=== PATIENT | male | born 1955 | race Caucasian/White ===

== ENCOUNTER 2017-01-12 10:55 | Observation (INO) ==
[2017-01-12] MEDS ORDERED: Ipratropium/Albuterol Neb 3 ML IH ONE (11:38)
--- NOTE | 2017-01-12 12:08 | Emergency Department Note ---
Disposition Clinical Impression: ACS (acute coronary syndrome) Disposition: Admitted As Inpatient Condition: Good Referrals: NONE,PCP [Primary Care Provider] - Forms: ED Satisfaction Letter Time of Disposition: 12:41 General Adult HPI - General Chief complaint: ED Shortness of Breath/Dyspnea Stated complaint: "my left lung hurts" Time Seen by Provider: 01/12/17 11:10 Source: patient Limitations: no limitations Nursing Notes Reviewed: Yes Vital Signs Reviewed: Yes - History of Present Illness HPI Narrative: History of present illness 61-year-old male history of COPD 3 strokes high blood pressure. Was presents to the ER with 1 week of nearly constant chest pain worse with exertion. Increasing exertional tolerance change in dyspnea over the past week. Denies increasing cough, sputum, fever, chills. Denies headache, vomiting, nausea or diaphoresis. Said he had a stress test a year ago but was unsure of the results. Patient heart score is 4. Patient will be worked up for COPD flare and chest pain ACS. Admission anticipated and shared with patient who is in agreement with this. Pain Scale: 10 - Related Data Previous Rx's Medication Instructions Recorded Meloxicam [Mobic] 7.5 mg PO DAILY #15 tablet 11/10/15 Allergies Allergy/AdvReac Type Severity Reaction Status Date / Time No Known Allergies Allergy Unverified 10/01/15 08:48 All systems ED: reviewed and negative except as stated. Cardiovascular: Reports: chest pain, dyspnea on exertion Respiratory: Reports: cough, dyspnea Past Medical History - Past Medical History Attestation: Yes The following information was validated with the patient. Source: patient Medical history: Reports: COPD, CVA, hypertension, other Surgical history: Reports: other (Lumbar back surgery fixation) Psychiatric history: Reports: no psych history - Social History Smoking Status: Current every day smoker Smokeless Tobacco Status: No Alcohol use: Reports: none Drug use: Reports: none Physical Exam - General Limitations: no limitations General appearance: alert, in distress - Head Head exam: atraumatic, normocephalic - Eye Eye exam: Present: normal appearance, PERRL, EOMI - ENT ENT exam: normal exam, normal oropharynx - Neck Neck exam: Present: normal inspection, full ROM - Chest Chest inspection: Present: normal inspection, symmetric chest wall rise - Respiratory Respiratory exam: Present: prolonged expiratory phase, other (Decreased breath sounds bilaterally) - Cardiovascular Cardiovascular exam: Present: regular rate, normal rhythm - Abdominal Exam Abdominal exam: Present: soft, Non-Tender - Extremities Exam Extremities exam: Present: normal inspection, full ROM. Absent: pedal edema - Expanded Lower Extremity Exam Gait: observed and normal - Back Exam Back exam: Present: normal inspection, full ROM - Neurological Exam Neurological exam: Present: alert, oriented X3, CN II-XII intact - Psychiatric Psychiatric exam: Present: normal affect, normal mood Course - Reevaluation(s) Reevaluation #1: ED workup is completed. Chest x-ray read as no acute process by radiology. Troponin is 0. Patient still having chest discomfort despite aspirin and DuoNeb. Patient will get IV Dilaudid and will be admitted. Vital Signs Temperature 98.7 F 01/12/17 10:56 Pulse Rate 94 01/12/17 10:56 Respiratory Rate 22 01/12/17 10:56 Blood Pressure 178/92 01/12/17 10:56 O2 Sat by Pulse Oximetry 94 01/12/17 10:56 Temperature 98.7 F 01/12/17 10:56 Pulse Rate 85 01/12/17 11:15 Respiratory Rate 16 01/12/17 12:16 Blood Pressure 152/90 01/12/17 11:15 O2 Sat by Pulse Oximetry 93 01/12/17 12:16 Oxygen Delivery Oxygen Delivery Room Air Medical Decision Making - Lab Data Lab results reviewed: Yes I reviewed the patient's lab results. Result diagrams: 01/12/17 12:07 01/12/17 12:07 Lab Results 01/12/17 01/12/17 01/12/17 Range/Units 12:07 12:07 12:07 WBC 10.8 (4.3-11.1) K/mcL RBC 5.12 (4.19-5.50) M/mcL Hgb 16.1 (12.9-16.9) g/dL Hct 46.5 (37.5-50.1) % MCV 90.8 (83.0-100.0) fL MCH 31.4 (28.0-33.3) pg MCHC 34.6 (31.6-35.5) g/dL RDW 12.9 (11.5-14.5) % Plt Count 255 (140-400) K/mcL MPV 10.0 (9.4-12.4) fL Immature Gran % 0.4 (0-4) % Seg Neutrophils % 68.5 % Lymphocytes % 17.8 % Monocytes % 10.6 % Eosinophils % 2.2 % Basophils % 0.5 % Neutrophils # 7.4 (1.6-8.9) K/mcL Lymphocytes # 1.9 (0.6-4.6) K/mcL Monocytes # 1.2 (0.0-1.3) K/mcL Eosinophils # 0.2 (0.0-0.6) K/mcL Basophils # 0.1 (0.0-0.2) K/mcL Immature Plt Fraction 3.9 (1.1-6.1) % Sodium 134 L (136-145) mEq/L Potassium 4.0 (3.5-4.5) mEq/L Chloride 100 (98-109) mEq/L Carbon Dioxide 25 (19-29) mEq/L BUN 11 (8-26) mg/dL Creatinine 0.76 (0.72-1.25) mg/dL Est GFR ( Amer) > 60 (> 60) Est GFR (Non-Af Amer) > 60 (> 60) BUN/Creatinine Ratio 14 (6-26) Glucose 103 H (70-99) mg/dL Calculated Osmolality 278 L (280-300) Calcium 9.5 (8.6-10.8) mg/dL Troponin I 0.00 (0-0.03) ng/mL - Radiology Data Radiology results reviewed: Yes I reviewed the patient's radiology results. - EKG Data EKG #1 EKG attestation: Yes I reviewed and interpreted this EKG. EKG results narrative: Twelve-lead EKG interpreted without cardiology shows: Sinus rhythm of 87 bpm. Normal PA, QRS, QT corrected. No acute ischemic changes are noted. No acute changes when compared to prior EKG of 09/25/2014
[2017-01-12 12:17] LABS: Basophils # 0.1 K/mcL (0.0-0.2); Basophils % 0.5 %; Eosinophils # 0.2 K/mcL (0.0-0.6); Eosinophils % 2.2 %; Hematocrit 46.5 % (37.5-50.1); Hemoglobin 16.1 g/dL (12.9-16.9); Immature Granulocytes % 0.4 % (0-4); Immature Platelets 3.9 % (1.1-6.1); Lymphocytes # 1.9 K/mcL (0.6-4.6); Lymphocytes % 17.8 %; Mean Corpuscular HGB Conc 34.6 g/dL (31.6-35.5); Mean Corpuscular Hemoglobin 31.4 pg (28.0-33.3); Mean Corpuscular Volume 90.8 fL (83.0-100.0); Monocytes # 1.2 K/mcL (0.0-1.3); Monocytes % 10.6 %; Neutrophils # 7.4 K/mcL (1.6-8.9); Platelet Count 255 K/mcL (140-400); Red Blood Count 5.12 M/mcL (4.19-5.50); Red Cell Distribution Width 12.9 % (11.5-14.5); Segmented Neutrophils % 68.5 %
[2017-01-12 12:28] LABS: BUN/Creatinine Ratio 14 (6-26); Blood Urea Nitrogen 11 mg/dL (8-26); Calcium 9.5 mg/dL (8.6-10.8); Carbon Dioxide 25 mEq/L (19-29); Chloride 100 mEq/L (98-109); Glucose 103 mg/dL (70-99); Osmolality,Calculated 278 (280-300); Sodium 134 mEq/L (136-145); eGFR For African Americans > 60 (> 60); eGFR For Non-African Americans > 60 (> 60)
[2017-01-12] MEDS ORDERED: Ondansetron 4 MG/2 ML VIAL IVP ONE (12:41)
[2017-01-12] MEDS ORDERED: *HR* HYDROmorphone (PF) 1 MG/ML SYRINGE IVP ONE (12:41)
[2017-01-12] MEDS: Aspirin 81 MG TAB.CHEW PO SCH (13:56)
[2017-01-12] MEDS ORDERED: Albuterol 2.5 MG/3 ML NEBULIZER IH PRN (15:23)
[2017-01-12] MEDS ORDERED: Naloxone 0.4 MG/ML INJ IVP PRN (15:25)
[2017-01-12] MEDS ORDERED: Ibuprofen 400 MG TABLET PO PRN (15:38)
--- NOTE | 2017-01-12 15:54 | Internal Med History&Physical ---
Date of Encounter: 01/12/17 Time of Encounter: 15:50 Assessment and Plan (1) ACS (acute coronary syndrome) Current visit: Yes Status: Acute One-week history of chest pain, shortness of breath. Workup thus far unremarkable with a troponin of 0.00, metabolic panel, CBC unremarkable. will continue workup to rule out ACS. We will continue to trend troponins and consider stress test in the morning based upon results PT/INR, PTT added to lab work Continue home dose of aspirin 81 mg Norvasc, lisinopril/hydrochlorothiazide. (2) COPD (chronic obstructive pulmonary disease) Current visit: Yes Status: Chronic Patient has chronic COPD. Has been increasingly short of breath throughout the last week. Chest x-ray in the ED was negative for acute pulmonary process. Lung sounds are somewhat diminished, however, at this time he remains on room air. Will continue to treat for COPD exacerbation at this time. Duo nebs every 4 hours scheduled Albuterol every 2 hours when necessary May consider adding IV steroids if difficulty in breathing persists. Qualifiers: COPD type: unspecified COPD Qualified Code(s): J44.9 - Chronic obstructive pulmonary disease, unspecified (3) DVT prophylaxis Current visit: Yes Status: Acute Patient is at risk for DVT due to hospital stay and prolonged immobility. Start Lovenox 40 mg subcutaneous daily Internal Medicine - H&P: HPI Chief complaint: Chest pain, dyspnea Admitted From: Home Plans for Post Hospital Care: Home History of present illness: Mr. Martin is a 61 year old male with a past medical history of COPD, HTN, CVA 5. Presents to [facility] today with a one-week history of left sided chest pain is described as sharp without radiation and constant. The patient is an underlying history of COPD but admits today he feels more short of breath than normal, admitting to decrease in activity levels due to exertional dyspnea over the last week. All information obtained from chart review and patient report. The patient reports that 1 week ago he began experiencing pain in the left chest and left axillary region stating "my left lung hurts", additionally, he noted that the pain is increased in intensity and he was concerned that he may be having a heart attack. Workup in the emergency department included troponin was negative at 0.00, unremarkable CBC, METABOLIC PANEL, and CXR. With the chest pain and shortness of breath appears he may be having acute coronary syndrome or COPD exacerbation. He is being admitted to the [facility] for further workup and evaluation. Past Med Surg Social Fam HX - Past Medical History Medical history: COPD, CVA, hypertension, other Psychiatric history: no psych history - Past Surgical History Surgical History: other - Social History Smoking Status: Current every day smoker Smokeless Tobacco Status: No Alcohol use: none Drug use: none - Family History Mother Hx Family Cardiac Disorders: Yes (CAD) Internal Medicine - H&P: Meds Albuterol Sulfate [Proair Hfa] 2 puff IH Q4-6H PRN 01/12/17 [History] Aspirin [Lo-Dose Aspirin EC] 81 mg PO DAILY 01/12/17 [History] Lisinopril-HCTZ 20-12.5 [Prinzide 20-12.5] 1 tab PO DAILY 01/12/17 [History] Umeclidinium Brm/Vilanterol Tr [Anoro Ellipta 62.5-25 Mcg INH] 1 puff IH DAILY 01/12/17 [History] amLODIPine [Norvasc] 5 mg PO DAILY 01/12/17 [History] 3 Allergy/AdvReac Type Severity Reaction Status Date / Time No Known Allergies Allergy Verified 01/12/17 13:15 All Systems PM: A 10-system review of systems was performed and is negative for pertinent findings except as documented above in the HPI. - Constitutional Constitutional: excessive sweating (Which is chronic), no chills, no fever(s), no night sweats - EENT Eyes: no change in vision, no discharge, no pain, no photophobia Ears: no ear discharge, no ear pain, no tinnitus Nose, mouth and throat: no dysphagia, no nasal discharge, no neck pain, no sore throat - Cardiovascular Cardiovascular ROS IM: as per HPI, chest pain (Left-sided without radiation described as sharp and constant), dyspnea (At rest and with exertion), dyspnea on exertion, no diaphoresis, no edema, no irregular heart rhythm, no lightheadedness, no orthopnea, no palpitations, no syncope - Respiratory Respiratory: pain on inspiration, no cough, no dyspnea, no wheezing, no excessive phlegm production - Gastrointestinal Gastrointestinal: no abdominal pain, no diarrhea, no hematemesis, no hematochezia, no melena, no nausea, no vomiting - Musculoskeletal Musculoskeletal ROS IM: no numbness, no tingling - Integumentary Integumentary IM: no rash, no unusual bruising - Neurological Neurological ROS: no confusion, no convulsions, no focal weakness, no numbness, no tingling, no tremor(s) - Hematologic/Lymphatic Hematologic/Lymphatic: no easy bruising - Constitutional Vitals: Temp Pulse Resp BP Pulse Ox 97.8 F 70 16 134/70 96 01/12/17 14:47 01/12/17 14:47 01/12/17 14:47 01/12/17 14:47 01/12/17 14:47 General appearance: Present: cooperative, mild distress, A&O X 3, answers questions appropriately - Head Head exam: Present: atraumatic, normocephalic - Eye Eye exam: Present: PERRL, conjuntiva pink, sclera anicteric Pupils: Present: PERRL - Neck Neck exam general surgery: Present: supple, trachea midline. Absent: lymphadenopathy - Respiratory Respiratory exam: Present: decreased breath sounds, CTAB. Absent: accessory muscle use, rales, rhonchi, wheezes - Cardiovascular Cardiovascular exam: Present: RRR, +S1, +S2. Absent: diastolic murmur, gallop, rubs, systolic murmur - GI/Abdominal GI/Abdominal exam: Present: normal bowel sounds, soft, no peritoneal signs. Absent: distended, tenderness - Extremities Exam Extremities exam: Present: warm, radial pulses palpable and symmetrical. Absent : calf tenderness, cyanotic, pedal edema Additional comments: Patient is complaining of left pectoral tenderness upon palpation, left axillary tenderness upon palpation, and pain with range of motion. Patient does appear to have some difficulties with abduction of the left upper extremity as well as some difficulties with adduction. - Expanded Upper Extremities Exam Shoulder exam: Absent: swelling - Neurological Exam Neurological exam: Present: CN II-XII intact, oriented X3, no focal deficits. Absent: pronater drift, facial droop, speech deficit - Skin Skin exam: Present: dry, intact Internal Med - H&P Results - Labs CBC & Chem 7: 01/12/17 12:07 01/12/17 12:07 - EKG Data Prior EKG available for review: yes When compared to previous EKG: there is no significant change EKG comments: 01/12/17 15:58 Normal sinus rhythm - Diagnostic Studies Chest x-ray Additional comments: No acute process
[2017-01-12] MEDS: Ipratropium/Albuterol Neb 3 ML IH SCH ×3 (16:14→23:07)
[2017-01-12 16:31] LABS: INR 1.1; Prothrombin Time 11.9 Seconds (9.4-12.1)
[2017-01-12 16:34] LABS: Activated Partial Thrombo Time 31.1 Seconds (26.0-36.0)
[2017-01-12] MEDS: *HR* Morphine 2 MG/ML SYRINGE IVP PRN ×2 (17:54→22:00)
[2017-01-13 01:53] LABS: Alanine Aminotransferase 25 Units/L (0-55); Albumin 3.2 g/dL (3.5-5.0); Albumin/Globulin Ratio 0.9 (1.1-2.2); Alkaline Phosphatase 74 Units/L (38-126); Aspartate Amino Transferase 18 Units/L (5-34); BUN/Creatinine Ratio 12 (6-26); Bilirubin,Total 0.4 mg/dL (0.2-1.2); Blood Urea Nitrogen 10 mg/dL (8-26); Calcium 8.6 mg/dL (8.6-10.8); Carbon Dioxide 27 mEq/L (19-29); Chloride 100 mEq/L (98-109); Globulin 3.4 g/dL (2.4-3.5); Glucose 131 mg/dL (70-99); Osmolality,Calculated 279 (280-300); Potassium 3.6 mEq/L (3.5-4.5); Sodium 134 mEq/L (136-145); Total Protein 6.6 g/dL (6.0-8.3); eGFR For African Americans > 60 (> 60); eGFR For Non-African Americans > 60 (> 60)
[2017-01-13 02:07] LABS: Basophils # 0.1 K/mcL (0.0-0.2); Basophils % 0.4 %; Eosinophils # 0.4 K/mcL (0.0-0.6); Eosinophils % 2.9 %; Hematocrit 42.1 % (37.5-50.1); Immature Granulocytes % 0.5 % (0-4); Lymphocytes # 2.8 K/mcL (0.6-4.6); Lymphocytes % 22.4 %; Mean Corpuscular HGB Conc 34.4 g/dL (31.6-35.5); Mean Corpuscular Hemoglobin 31.8 pg (28.0-33.3); Mean Corpuscular Volume 92.3 fL (83.0-100.0); Mean Platelet Volume 10.1 fL (9.4-12.4); Monocytes # 1.4 K/mcL (0.0-1.3); Monocytes % 11.3 %; Neutrophils # 7.9 K/mcL (1.6-8.9); Platelet Count 227 K/mcL (140-400); Red Blood Count 4.56 M/mcL (4.19-5.50); Segmented Neutrophils % 62.5 %
[2017-01-13 02:12] LABS: Hemoglobin 14.5 g/dL (12.9-16.9)
[2017-01-13] MEDS: Ipratropium/Albuterol Neb 3 ML IH SCH ×5 (03:49→20:52)
[2017-01-13] MEDS: *HR* Morphine 2 MG/ML SYRINGE IVP PRN ×4 (04:41→22:59)
[2017-01-13] MEDS: *HR* Enoxaparin 40 MG/0.4 ML SYRINGE SQ SCH (04:45)
[2017-01-13] MEDS ORDERED: Regadenoson 0.4 MG/5 ML SYRINGE IVP ONE (09:01)
[2017-01-13] MEDS: Aspirin Enteric Coated 81 MG Tablet PO SCH (09:40)
[2017-01-13] MEDS: amLODIPine 5 MG TABLET PO SCH (09:40)
[2017-01-13] MEDS: Aspirin 81 MG TAB.CHEW PO SCH (09:40)
[2017-01-13] MEDS: Lisinopril-HCTZ 20-12.5mg TABLET PO SCH (09:40)
--- NOTE | 2017-01-13 13:11 | Internal Med Progress Note ---
Date of Encounter: 01/13/17 Time of Encounter: 10:30 - Assessment and plan (1) Chest pain Current Visit: Yes Status: Acute Assessment and plan: Chest pain is atypical. It is located in his left anterior chest is reproducible with palpation. Chest x-ray negative. Echocardiogram unremarkable with ejection fraction of 60-65% and mild diastolic dysfunction. Patient is euvolemic on examination. Troponins negative 3. While his examination is most consistent with musculoskeletal etiology, given his past medical history, he is at high risk, we will perform stress test tomorrow. In the meantime, will trial lidocaine patch. ITS Impressions Chest X-Ray 01/12/17 11:38 IMPRESSION: No acute process. D/ / Natasha Julian MD / Natasha Julian MD Interpreting Provider: Natasha Julian MD Echocardiogram Date of Study: 01/13/2017 Impressions: LVEF 60-65%. Normal LV chamber size and function. Mild concentric left ventricular hypertrophy. Mild left ventricular diastolic dysfunction. Normal right ventricular structure and function. No significant valvular dysfunction. No evidence of pulmonary hypertension. (2) Acute costochondritis Current Visit: Yes Status: Suspected (3) Insurance coverage problems Current Visit: Yes Status: Acute Assessment and plan: vp client services on board. Patient and state they cannot afford insurance coverage for him. (4) Tobacco abuse Current Visit: Yes Status: Chronic Assessment and plan: Patient smokes a half to a whole pack per day, declines counseling at this time. Declines nicotine replacement therapy. (5) Hypertension Current Visit: Yes Status: Chronic Assessment and plan: Controlled, we will continue to trend and adjust medication as indicated. (6) CVA, old, cognitive deficits Current Visit: Yes Status: Chronic Assessment and plan: Patient and his state that the patient has had 5 strokes. No focal neurological weakness is present. He does have mild acute memory loss and very mild left-sided facial drooping. Able to close his eye fully. He denies new symptoms. (7) COPD (chronic obstructive pulmonary disease) Current Visit: Yes Status: Chronic Assessment and plan: No acute exacerbation. Patient denies shortness of breath above his norm. On examination, patient with diffuse expiratory wheezing present. We will continue bronchodilators. No indication for steroids at this time. Qualifiers: COPD type: unspecified COPD Qualified Code(s): J44.9 - Chronic obstructive pulmonary disease, unspecified (8) DVT prophylaxis Current Visit: Yes Status: Acute Assessment and plan: Subcutaneous Lovenox - Subjective Interval history: Patient seen and examined. On examination, the patient sitting upright in bed conversing with his . Patient continues to complain of left anterior chest pain worsened with palpation and movement. He denies shortness of breath above his norm. - Constitutional Vitals: Temp Pulse Resp BP Pulse Ox 97.8 F 68 18 110/68 95 01/13/17 10:52 01/13/17 10:52 01/13/17 11:02 01/13/17 10:52 01/13/17 11:02 General appearance: Present: cooperative, A&O X 3, pleasant, no acute distress, answers questions appropriately - Head Head exam: Present: atraumatic, normocephalic - Eye Eye exam: Present: PERRL, conjuntiva pink, sclera anicteric Pupils: Present: PERRL - Neck Neck exam general surgery: Present: supple, trachea midline. Absent: lymphadenopathy - Respiratory Respiratory exam: Present: chest wall tenderness, decreased breath sounds, prolonged expiratory phase, wheezes. Absent: accessory muscle use, rales, respiratory distress, rhonchi - Cardiovascular Cardiovascular exam: Present: RRR, +S1, +S2. Absent: diastolic murmur, gallop, rubs, systolic murmur - GI/Abdominal GI/Abdominal exam: Present: normal bowel sounds, soft, no peritoneal signs. Absent: distended, tenderness - Extremities Exam Extremities exam: Present: warm, radial pulses palpable and symmetrical. Absent : calf tenderness, cyanotic, pedal edema - Neurological Exam Neurological exam: Present: alert, CN II-XII intact, oriented X3, no focal deficits, strengths equal and symetr throughout. Absent: pronater drift, facial droop, speech deficit - Skin Skin exam: Present: dry, intact, pallor, warm Internal Medicine: Result - Labs CBC & Chem 7: 01/13/17 01:56 01/13/17 00:48 Labs: Short CBC 01/13/17 Range/Units 01:56 WBC 12.6 H (4.3-11.1) K/mcL Hgb 14.5 D (12.9-16.9) g/dL Hct 42.1 (37.5-50.1) % Plt Count 227 (140-400) K/mcL Neutrophils # 7.9 (1.6-8.9) K/mcL BMP 01/13/17 00:48 Sodium 134 L Potassium 3.6 Chloride 100 Carbon Dioxide 27 BUN 10 Creatinine 0.84 Glucose 131 H Calcium 8.6 Cardiac Enzymes 01/12/17 01/13/17 Range/Units 16:11 00:48 Troponin I 0.00 0.01 (0-0.03) ng/mL Liver Function 01/13/17 Range/Units 00:48 Total Bilirubin 0.4 (0.2-1.2) mg/dL AST 18 (5-34) Units/L ALT 25 (0-55) Units/L Alkaline Phosphatase 74 (38-126) Units/L Albumin 3.2 L (3.5-5.0) g/dL - ABG Interpretation ABG results: PT/INR, D-dimer PT 11.9 Seconds (9.4-12.1) 01/12/17 16:11 Consult Discharge Plan - Plan Referrals: NONE,PCP [Primary Care Provider] -
--- NOTE | 2017-01-13 16:26 | Electrocardiograph Report ---
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
[2017-01-14] MEDS: Ipratropium/Albuterol Neb 3 ML IH SCH ×4 (00:34→11:34)
[2017-01-14] MEDS: *HR* Morphine 2 MG/ML SYRINGE IVP PRN (05:21)
[2017-01-14] MEDS: *HR* Enoxaparin 40 MG/0.4 ML SYRINGE SQ SCH (05:21)
[2017-01-14] MEDS ORDERED: Regadenoson 0.4 MG/5 ML SYRINGE IVP ONE ×2 (07:15→07:16)
[2017-01-14 11:06] VITALS: BP 133/77
--- NOTE | 2017-01-14 11:15 | Nuclear Medicine Stress Report ---
Regadenoson Nuclear Stress Name: Francisco Martin Date of Study: 01/14/2017 Date: 1955 Ht: 68.0 in Medical Record#: [id number] Age: 61 Wt: 186.0 lb Gender: Male Order #: [id number] Location: [facility] Room: [facility] Supervising Provider: Sameer Gee CNP Reading Physician: Sumanth Mancia MD, [facility] Ordering Physician: Zoë Zaragoza CNP Primary Care Physician: None Stress Technologist: Bettina Garcia RRT Manager Market Research: Yrn [place]ountain Indications: Chest Pain Impression: Patient reported moderate chest pain prior to the examination. Chest pain mildly worsened with regadenoson. No significant ECG changes with regadenoson. Gated LVEF = 60%. Perfusion imaging was negative for ischemia or infarct. History: Hypertension Hypercholesteremia History of Smoking Stress Test Summary: Stress Test Type: Pharmacologic Regadenoson 0.4mg/5ml given IV Baseline Information: Initial Heart Rate: 69 Blood Pressure: 120/74 Stress Information: Test Terminated Due to (primary): As per protocol Maximum Blood Pressure: 124/60 Maximum Heart Rate: 117 Percent Maximum Heart Rate Achieved: 74 Double Product: [id number] Symptoms: Chest pain Nuclear Summary: SPECT myocardial perfusion imaging using Tc99m Sestamibi given intravenously was performed at rest and following cardiac stress testing. The resting images were obtained following initial dose of 11 mCi. Following stress an additional dose of 35 mCi was given at peak exercise or 30 seconds post regadenoson infusion. Findings: Stress Note * Resting ECG demonstrated sinus rhythm, poor r-wave progression. * No baseline arrhythmias were noted. * Patient reported moderate chest pain prior to the examination. Chest pain mildly worsened with regadenoson. * No arrhythmias were noted during stress. Occasional PVCs noted in recovery. * No significant ECG changes with regadenoson. Hemodynamic responses * Normal hemodynamic responses to pharmacologic stress. Study Quality * Study quality is average. Gated EF % * Gated LVEF = 60%. Left Ventricle * The left ventricle is not dilated. * Normal Segmental Perfusion in rest. * Normal segmental perfusion in stress. * Mild inferior wall artifact is noted. TID * No evidence of transient ischemic dilatation. Updated by Sumanth Mancia MD, [facility] on 01/14/2017 11:08:08 AM electronically signed on 01/14/2017 11:08:38 AM with status of Final
[2017-01-14] MEDS: Aspirin 81 MG TAB.CHEW PO SCH (11:26)
[2017-01-14] MEDS: Aspirin Enteric Coated 81 MG Tablet PO SCH (11:28)
[2017-01-14] MEDS: Lisinopril-HCTZ 20-12.5mg TABLET PO SCH (11:28)
[2017-01-14] MEDS: amLODIPine 5 MG TABLET PO SCH (11:28)
--- NOTE | 2017-01-14 15:15 | Discharge Summary ---
Date of Encounter: 01/14/17 Time of Encounter: 14:30 - Discharge Diagnosis (1) Chest pain Priority: Primary Status: Ruled-out Comments: Chest pain atypical and consistent with musculoskeletal etiology. ACS ruled out. Follow-up outpatient. 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 (4) Tobacco abuse Priority: Secondary Status: Chronic Comments: Patient continues to smoke 1/2-1 pack per day. Declined counseling. (5) Hypertension Priority: Secondary Status: Chronic Comments: Controlled, follow-up outpatient. (6) CVA, old, cognitive deficits Priority: Secondary Status: Chronic Comments: Patient and his state that the patient has had 5 strokes. No focal neurological weakness is present. He does have mild acute memory loss and very mild left-sided facial drooping. Able to close his eye fully. He denies new symptoms. (7) COPD (chronic obstructive pulmonary disease) Priority: Secondary Status: Chronic Comments: No acute exacerbation. Patient denied shortness of breath above his norm while admitted. On examination, patient with diffuse expiratory wheezing present without increased work of breathing. Patient is on Anoro Ellipta and albuterol at home. Qualifiers: COPD type: unspecified COPD Qualified Code(s): J44.9 - Chronic obstructive pulmonary disease, unspecified (8) DVT prophylaxis Priority: Primary Status: Acute Comments: Subcutaneous Lovenox while admitted - Discharge Medications Home Medications: Albuterol Sulfate [Proair Hfa] 2 puff IH Q4-6H PRN 01/12/17 [History] Aspirin [Lo-Dose Aspirin EC] 81 mg PO DAILY 01/12/17 [History] Lisinopril-HCTZ 20-12.5 [Prinzide 20-12.5] 1 tab PO DAILY 01/12/17 [History] Umeclidinium Brm/Vilanterol Tr [Anoro Ellipta 62.5-25 Mcg INH] 1 puff IH DAILY 01/12/17 [History] amLODIPine [Norvasc] 5 mg PO DAILY 01/12/17 [History] Allergies/Adverse Reactions: 3 Allergy/AdvReac Type Severity Reaction Status Date / Time No Known Allergies Allergy Verified 01/12/17 13:15 Procedures/tests Complete & Pending: Procedures Performed prior 72 hours Category Date Time Status NM lori perf SPECT multi [NM] Routine Exams 01/14/17 06:56 Taken EV echocardiogram Routine Y 01/13/17 19:11 Completed SP pharm nuclear stress Routine Y 01/14/17 06:55 Completed Date of admission: 01/12/17 13:06 Primary care physician: PCP NONE Consults: 01/12/17 15:28 Consult to Hospital Fellow [CONS] Routine Reason for SW Consult: pt is self pay Discharging clinician: Zoë Zaragoza Anticipated date of discharge: 01/14/17 - Patient Status Disposition: Home, Self-Care Condition: Good Functional capacity at discharge: independent ambulation Overall status at discharge: patient is back to baseline - Discharge Instructions Follow Up With: Clinic, Residency [Other] Additional Instructions: Follow-up with residency clinic in 1-2 weeks - Diet and Activity Activity: increase activity as tolerated Diet: low fat, low cholesterol, low salt diet Hospital course: Mr. Martin is a 61 year old male with past medical history of COPD, hypertension , CVA 5, tobacco abuse. Patient presented to the emergency department chief complaint one week history of left-sided chest pain described as sharp and without radiation and constant. On the day of presentation, he started to feel more short of breath than usual and admitted to decreasing his activity levels due to exertional dyspnea over the past week. Workup in the emergency department unremarkable. Chest x-ray negative. Patient was admitted to the hospitalist service for further evaluation and management. Echocardiogram unremarkable with ejection fraction of 60-65% and mild diastolic dysfunction. Patient is euvolemic on examination. Troponins negative 3. Stress test negative. ACS was ruled out. On examination, left anterior chest pain is highly reproducible with palpation and consistent with musculoskeletal etiology. We trial lidocaine patches during this admission but he stated that they did not help. He continually asked for narcotic pain medication and stated this was the only thing that helped his pain. On disposition, he was instructed to use ibuprofen or acetaminophen for his pain. 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 He was discharged home in stable condition with close outpatient follow-up recommended. ITS Impressions Chest X-Ray 01/12/17 11:38 IMPRESSION: No acute process. D/ / Natasha Julian MD / Natasha Julian MD Interpreting Provider: Natasha Julian MD Echocardiogram Date of Study: 01/13/2017 Impressions: LVEF 60-65%. Normal LV chamber size and function. Mild concentric left ventricular hypertrophy. Mild left ventricular diastolic dysfunction. Normal right ventricular structure and function. No significant valvular dysfunction. No evidence of pulmonary hypertension. Regadenoson Nuclear Stress Date of Study: 01/14/2017 Impression: Patient reported moderate chest pain prior to the examination. Chest pain mildly worsened with regadenoson. No significant ECG changes with regadenoson. Gated LVEF = 60%. Perfusion imaging was negative for ischemia or infarct. - Time Spent with Patient Total time spent providing and/or coordinating discharge services: - Constitutional Vitals: Temp Pulse Resp BP Pulse Ox 98.3 F 75 16 133/77 95 01/14/17 11:04 01/14/17 11:04 01/14/17 11:04 01/14/17 11:04 01/14/17 11:04 General appearance: Present: cooperative, A&O X 3, pleasant, no acute distress, answers questions appropriately - Head Head exam: Present: atraumatic, normocephalic - Eye Eye exam: Present: PERRL, conjuntiva pink, sclera anicteric Pupils: Present: PERRL - Neck Neck exam general surgery: Present: supple, trachea midline. Absent: lymphadenopathy - Respiratory Respiratory exam: Present: chest wall tenderness, prolonged expiratory phase, wheezes. Absent: accessory muscle use, rales, respiratory distress, rhonchi - Cardiovascular Cardiovascular exam: Present: RRR, +S1, +S2. Absent: diastolic murmur, gallop, rubs, systolic murmur - GI/Abdominal GI/Abdominal exam: Present: distended, normal bowel sounds, soft, no peritoneal signs. Absent: tenderness - Extremities Exam Extremities exam: Present: warm, radial pulses palpable and symmetrical. Absent : calf tenderness, cyanotic, pedal edema - Neurological Exam Neurological exam: Present: alert, CN II-XII intact, normal gait, oriented X3, no focal deficits, strengths equal and symetr throughout. Absent: pronater drift, facial droop, speech deficit - Skin Skin exam: Present: dry, intact, normal color, warm
== END 2017-01-14 15:55 | disposition home or self-care (01) ==
LOC: 3BNU 10:55 → EMEROO 10:55 → SUATTDRO 13:06 → 3BNU 14:10
PROVIDERS: ADMIT Nurse Practitioner; ATTEND Nurse Practitioner Family